=== PATIENT | male | born 1960 | race Caucasian/White ===

== ENCOUNTER 2022-08-10 04:35 | Day surgery (SDC) | payer OTHER ==
[2022-08-09 09:49] VITALS: BMI 23.6
[2022-08-10] MEDS ORDERED: LIDOCAINE HCL 1%, 10 MG/ML (20ML VIAL) ONE (12:17)
[2022-08-10] MEDS ORDERED: BUPIVACAINE HCL/PF 0.5% (5MG/ML) 10 ML VIAL ONE (12:17)
[2022-08-10] MEDS ORDERED: BACITRACIN 15 GM TUBE TOPICAL OINTMENT ONE (12:17)
[2022-08-10] MEDS ORDERED: ACETAMINOPHEN 1000 MG/100 ML BAG IVPB ONE ×2 (12:49→14:42)
[2022-08-10] MEDS ORDERED: IBUPROFEN 800 MG/8 ML IJ IVPB SCH (13:00)
[2022-08-10] MEDS ORDERED: DEXTROSE 5%-0.45% SALINE 1,000 ML IV SCH (13:00)
[2022-08-10] MEDS ORDERED: METOCLOPRAMIDE HCL INJECTION 10 MG/2 ML VIAL ONE (13:28)
[2022-08-10] MEDS ORDERED: PROPOFOL 20 ML ONE (13:28)
[2022-08-10] MEDS ORDERED: LIDOCAINE HCL/PF 2% SDV 5ML VIAL ONE (13:28)
[2022-08-10] MEDS ORDERED: ONDANSETRON 4 MG/2 ML VIAL ONE (13:28)
[2022-08-10] MEDS ORDERED: ceFAZolin SODIUM 1 GM VIAL IVPB ONE (13:52)
[2022-08-10] MEDS ORDERED: BUPIVACAINE HCL/PF 0.5% (5MG/ML) 10 ML VIAL IJ ONE (13:56)
[2022-08-10] MEDS ORDERED: ONDANSETRON 4 MG/2 ML VIAL IVPUSH PRN (14:33)
[2022-08-10] MEDS ORDERED: oxyCODONE HCL 5 MG TABLET PO PRN ×2 (14:33)
[2022-08-10] MEDS ORDERED: ACETAMINOPHEN INJECTION 100 ML IVPB ONE (14:39)
[2022-08-10] MEDS ORDERED: LACTATED RINGERS SOLUTION 1,000 ML IV SCH (14:45)
[2022-08-10 16:04] VITALS: RESP 18; TEMP 97.8
[2022-08-10 18:40] VITALS: BP 121/69; PULSE 54
== END 2022-08-10 16:40 | disposition home or self-care (01) ==
LOC: JASU-SURG 04:35
PROVIDERS: ATTEND Urology
PROC: 0VTTXZZ Resection of Prepuce, External Approach (ICD-10-PCS; principal; 2022-08-10 13:30)
DX: N47.1 Phimosis (principal)
CPT/HCPCS: 82962; 88304-TC; 94760

== ENCOUNTER 2024-11-30 09:38 | Emergency (ER) | payer OTHER ==
[2024-11-30 09:47] VITALS: BP 139/74; PULSE 80; RESP 18; TEMP 98; BMI 25.1
[2024-11-30] MEDS ORDERED: METHOCARBAMOL 500 MG TABLET ONE (10:26)
[2024-11-30] MEDS ORDERED: ACETAMINOPHEN 500 MG TABLET (FP) ONE (10:26)
[2024-11-30] MEDS ORDERED: LIDOCAINE 5% TOPICAL PATCH ONE (10:29)
[2024-11-30] MEDS: LIDOCAINE 5% TOPICAL PATCH TP ONE (10:35)
[2024-11-30] MEDS: ACETAMINOPHEN 500 MG TABLET (FP) PO ONE (10:36)
[2024-11-30] MEDS: METHOCARBAMOL 500 MG TABLET PO ONE (10:36)
[2024-11-30] MEDS ORDERED: LIDOCAINE PATCH REMOVAL MC ONE (22:00)
== END 2024-11-30 12:08 | disposition home or self-care (01) ==
LOC: JER 09:38
DX: M54.2 Cervicalgia (principal)
CPT/HCPCS: 99283-25